=== PATIENT | male | born 1940 | race Caucasian/White ===

== ENCOUNTER 2018-10-06 18:32 | Inpatient (IN) | payer OTHER ==
[~2018-10-06] VITALS: Ht 185.4 cm; Wt 90.7 kg
[~2018-10-06 18:32] MED LIST: AMBIEN 10 MG TA10 MG PO; ATIVAN1 MG PO; CIPRO500 MG PO; CYMBALTA30 MG PO; ERYTHROMYCIN E3.5 G1 OPHTHALMIC; FIBERCON625 MG PO; FLOMAX0.4 MG PO; HYDROCHLOROTHIA25 M1 PO; IBUPROFEN 800800 M1 PO; LEVOTHROID75 MCG PO; LEVOTHYROXIN0.075 MG PO; LEVOTHYROXIN0.112 M1 PO; NEXIUM40 MG PO; ONDANSETRON HCL4 M2 PO; PERCOCET PO; PROTONIX40 M2 PO; RED YEAST RICE600 MG PO; TYLENOL325 MG PO
[2018-10-06 18:39] VITALS: BP 172/95
[2018-10-06] MEDS ORDERED: NORCO 5-325 TA1 EACH PO (18:42)
[2018-10-06 19:17] LABS: HEMOGLOBIN 15.3 gm/dL (14.0-18.0); MCH 29.5 pg (26.0-34.0); MCHC 33.4 g/dL (28.0-37.0); MCV 88.6 fL (80.0-100.0); MPV 9.7 fl. (7.2-11.1); NUCLEATED RBCS 0 /100WBC; PLATELET COUNT* 201 thou/uL (150-400); RBC 5.19 mil/uL (4.50-6.00); RDW-CV 13.9 % (10.5-14.5); WBC 10.5 thou/uL (4.0-11.0)
[2018-10-06 19:22] LABS: URINE BILIRUBIN NEGATIVE (Negative); URINE BLOOD 3+ (Negative); URINE CLARITY CLEAR; URINE COLOR YELLOW; URINE GLUCOSE-RANDOM NEGATIVE (Negative); URINE KETONES NEGATIVE (Negative); URINE LEUKOCYTES-REFLEX NEGATIVE (Negative); URINE NITRITE-REFLEX NEGATIVE (Negative); URINE PROTEIN 2+ (Negative); URINE SPECIFIC GRAVITY >= 1.030 (1.005-1.030); URINE UROBILINOGEN 0.2 E.U./dl (0.2-1.0)
[2018-10-06 19:23] LABS: ANION GAP 7 mmol/L (7-16); BUN 18 mg/dL (7-18); CHLORIDE 103 mmol/L (98-107); CO2 27 mmol/L (21-32); CREATININE 1.5 mg/dL (0.6-1.3); GLUCOSE 111 mg/dL (70-99); POTASSIUM 4.2 mmol/L (3.5-5.1); SODIUM 137 mmol/L (136-145)
[2018-10-06 19:30] LABS: ALKALINE PHOSPHATASE 112 U/L (46-116); LIPASE 63 U/L (73-393); SGOT 23 U/L (15-37); SGPT 33 U/L (30-65); TOTAL BILIRUBIN 0.3 mg/dL (<0.1-1.0); TOTAL PROTEIN 7.4 g/dL (6.4-8.2); TROPONIN-I LEVEL <0.06 ng/mL (<0.06)
[2018-10-06 19:30] LABS: BACTERIA-REFLEX None Seen /HPF (None Seen); CASTS None Seen /LPF (None Seen); MUCUS 0-3 Light strn/LPF (None Seen); SQUAMOUS 0-3 Few /LPF (0-3); URINE RBC 3-10 Few /HPF (0-2); URINE WBC-REFLEX None Seen /HPF (0-5)
[2018-10-06 19:31] LABS: CRYSTALS None Seen /LPF (None Seen)
[2018-10-06 19:49] LABS: ABSOLUTE LYMPHOCYTES 1.9 thou/uL (0.8-5.3); ABSOLUTE MONOCYTES 0.6 thou/uL (0.0-1.2); ATYPICAL LYMPHS 7 %; PLATELET ESTIMATE ADEQUATE
[2018-10-06 21:25] VITALS: BP 155/81
[2018-10-06 22:55] VITALS: BP 160/83
[2018-10-07 04:38] LABS: CALCIUM 8.4 mg/dL (8.5-10.1); CREATININE 1.6 mg/dL (0.6-1.3); PHOSPHORUS* 5.1 mg/dL (2.5-4.9); POTASSIUM 4.3 mmol/L (3.5-5.1)
[2018-10-07 08:28] VITALS: BP 128/59
[2018-10-07 14:26] VITALS: BP 128/59
[2018-10-07 14:35] VITALS: BP 128/59
[2018-10-07 14:59] VITALS: BP 124/66
--- NOTE | 2018-10-07 15:01 | EKG ---
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: : 1940 Requested By: Dianne Mccurdy Order Number: [id number] MD: Rubin Davis Measurements Intervals [place] Rate: 68 P: 77 IA: 180 QRS: 24 QRSD: 152 T: 73 QT: 422 QTc: 449 Interpretive Statements Sinus rhythm Right bundle branch block Baseline wander in lead(s) V1 Compared to ECG 01/25/2015 22:32:02 No significant changes Electronically Signed On 10-07-2018 15:01:36 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
[2018-10-07 20:30] VITALS: BP 144/62
[2018-10-08] VITALS: BP 135/61
[2018-10-08 04:00] VITALS: BP 137/54
[2018-10-08 08:31] VITALS: BP 141/58
[2018-10-08] MEDS ORDERED: FLOMAX0.4 MG PO (09:55)
[2018-10-08] MEDS ORDERED: VITAMIN B-12500 MCG PO (09:55)
[2018-10-08] MEDS ORDERED: UNICOMPLEX M TA1 TA1 PO (09:56)
[2018-10-08] MEDS ORDERED: FOLIC ACID1 MG PO (09:56)
[2018-10-08] MEDS ORDERED: CIPRO250 M1 PO (09:58)
[2018-10-08 10:34] LABS: ABSOLUTE LYMPHOCYTES 1.1 thou/uL (0.8-5.3); ABSOLUTE MONOCYTES 0.9 thou/uL (0.0-1.2); ABSOLUTE NEUTROPHILS 9.3 thou/uL (1.6-8.1); BASOPHILS 0.3 %; EOSINOPHILS 0.1 %; HEMATOCRIT 40.9 % (42.0-52.0); HEMOGLOBIN 13.4 gm/dL (14.0-18.0); LYMPHOCYTES 9.6 %; MCH 29.1 pg (26.0-34.0); MCHC 32.6 g/dL (28.0-37.0); MCV 89.1 fL (80.0-100.0); MONOCYTES 7.9 %; MPV 9.6 fl. (7.2-11.1); NUCLEATED RBCS 0 /100WBC; PLATELET COUNT* 183 thou/uL (150-400); POLYS 82.1 %; RBC 4.59 mil/uL (4.50-6.00); WBC 11.4 thou/uL (4.0-11.0)
[2018-10-08 10:47] VITALS: BP 141/58
[2018-10-08 10:47] LABS: CALCIUM 7.9 mg/dL (8.5-10.1); CREATININE 1.9 mg/dL (0.6-1.3); POTASSIUM 4.4 mmol/L (3.5-5.1)
[2018-10-08 10:57] VITALS: BP 141/58
[2018-10-08] MEDS ORDERED: LEVSIN0.125 MG PO (11:11)
[2018-10-08 11:39] VITALS: BP 141/58
--- NOTE | 2018-10-15 10:49 | OP ---
[address] [address] OPERATIVE REPORT Name: MAURYMYRIAM R Room: [address] IN M.R.#: [id number] Admission: 10/06/18 Attend Phys: Svetlana Chauhan MD Discharge: 10/08/18 Date of : 38 Report #: [id number] THIS REPORT FOR: //name// CC: [facility] Svetlana Tidwell DATE OF SERVICE: 10/07/2018 PREOPERATIVE DIAGNOSES: Obstructing left proximal ureteral calculus with continued pain. POSTOPERATIVE DIAGNOSES: Obstructing left proximal ureteral calculus with continued pain. PROCEDURE PERFORMED: Cystoscopy, right retrograde pyelogram, right ureteroscopy with laser fragmentation and basketing of stone and JJ stent placement. SURGEON: Nate Goddard MD COMPLICATIONS: None. DRAINS: Included a 6 x 26 cm stent in the right ureter. ANESTHESIA: General. BLOOD LOSS: None. SPECIMEN: Stone fragments to pathology. INDICATIONS: This is a 77-year-old male with prior history of passed stone, presented with severe right-sided flank pain, which continued since yesterday. He was given the options of management and elected to proceed with endoscopic stone management. He understood in advance the procedure, risks, potential complications and wished to proceed. He does also have two stones in the lower pole, which will need additional treatment. We discussed risk of bleeding, infection, scar tissue formation, inability to access the stone, injury to the urinary tract or adjacent structures and need for further procedures. DESCRIPTION OF PROCEDURE: Following informed consent, the patient was taken to the operating room and placed under general anesthesia. He was prepped and draped in sterile fashion in dorsal lithotomy position. Cystoscopy was carried out. The patient has normal anterior urethra, has evidence of prior TURP with moderate right-sided regrowth prostate. Bladder was inspected and was normal. The right ureteral orifice was cannulated. Retrograde pyelogram was performed, which revealed the stone still in the right proximal ureter [place] [address] OPERATIVE REPORT Name: MYRIAM MENDIOLA Room: [address]#: [id number] Admission: 10/06/18 Attend Phys: Svetlana Chauhan MD Discharge: 10/08/18 Date of : 38 Report #: [id number] of the proximal ureter. A sensor wire was advanced under fluoroscopic guidance into the renal collecting system. An 11 x 13-Lithuanian ureteral access sheath was placed up to about mid ureter. The flexible ureteroscope was inserted per this with the aid of a wire, was inserted up into the renal collecting system. The stone washed up into the mid pole ham. There, it was engaged in the basket, and the laser fiber was used to fragment into multiple pieces. Several of these were removed through the sheath and then the wire was then backloaded into the renal collecting system, and a 6 x 26 cm stent was placed with a coil in the renal pelvis and the coil in the bladder. Bladder was drained. The patient was given a Uro-Jet per urethra and B and O suppository, was not given Toradol as his creatinine was 1.6. The patient will need to have a stent in place for at least 10 days. We will do a KUB at that time and see if he can have either lithotripsy or repeat ureteroscopy before the stent is removed. <ELECTRONICALLY SIGNED> By: Nate Goddard MD 10/15/18 1049 1634 1715Wipravin Goddard MD /spike
[2018-10-15 16:10] LABS: STONE CA OXALATE MONOHYDRATE 95 % (()); STONE COLOR Brown (())
== END 2018-10-08 11:56 | disposition home or self-care (01) | DRG 660 ==
LOC: M.ERS 18:32 → M.TBA-ER 20:49 → M.ORTHSURG 20:49 → M.3W 21:38 → M.ORTHSURG 10-07 07:20
PROVIDERS: Physician Assistant; ADMIT Family Medicine
PROC: 0T768DZ Dilation of Right Ureter with Intraluminal Device, Via Natural or Artificial Opening Endoscopic (ICD-10-PCS; principal; 2018-10-07)
PROC: BT1D1ZZ Fluoroscopy of Right Kidney, Ureter and Bladder using Low Osmolar Contrast (ICD-10-PCS; principal; 2018-10-07)
PROC: 0TC68ZZ Extirpation of Matter from Right Ureter, Via Natural or Artificial Opening Endoscopic (ICD-10-PCS; principal; 2018-10-07)
DX: N20.2 Calculus of kidney with calculus of ureter (principal); E44.1 Mild protein-calorie malnutrition; N28.9 Disorder of kidney and ureter, unspecified; E53.8 Deficiency of other specified B group vitamins; I16.0 Hypertensive urgency; I12.9 Hypertensive chronic kidney disease with stage 1 through stage 4 chronic kidney disease, or unspecified chronic kidney disease; R31.29 Other microscopic hematuria; N40.0 Benign prostatic hyperplasia without lower urinary tract symptoms; N18.3 Chronic kidney disease, stage 3 (moderate); F41.9 Anxiety disorder, unspecified; E78.00 Pure hypercholesterolemia, unspecified; K21.9 Gastro-esophageal reflux disease without esophagitis; E03.9 Hypothyroidism, unspecified; Z90.49 Acquired absence of other specified parts of digestive tract; Z87.891 Personal history of nicotine dependence; Z79.01 Long term (current) use of anticoagulants; Z95.2 Presence of prosthetic heart valve; Z68.26 Body mass index [BMI] 26.0-26.9, adult; Z80.0 Family history of malignant neoplasm of digestive organs

== ENCOUNTER → 2019-12-09 | Outpatient (CLI) | payer OTHER ==
[~2019-12-09] MED LIST changes: +CIPRO250 M1 PO; +FOLIC ACID1 MG PO; +LEVSIN0.125 MG PO; +NORCO 5-325 TA1 EACH PO; +TRIAMCINOLONE A80 G2 TOP; +UNICOMPLEX M TA1 TA1 PO; +VITAMIN B-12500 MCG PO
[2019-12-09 12:24] LABS: ABSOLUTE EOSINOPHILS 0.2 thou/uL (0.0-0.7); ABSOLUTE LYMPHOCYTES 1.4 thou/uL (0.8-5.3); ABSOLUTE MONOCYTES 0.8 thou/uL (0.0-1.2); ABSOLUTE NEUTROPHILS 5.6 thou/uL (1.6-8.1); BASOPHILS 0.1 %; HEMATOCRIT 45.7 % (42.0-52.0); HEMOGLOBIN 15.5 gm/dL (14.0-18.0); LYMPHOCYTES 17.1 %; MCH 28.7 pg (26.0-34.0); MCHC 33.8 g/dL (28.0-37.0); MCV 84.9 fL (80.0-100.0); MONOCYTES 9.7 %; MPV 9.2 fl. (7.2-11.1); NUCLEATED RBCS 0 /100WBC; PLATELET COUNT* 233 thou/uL (150-400); POLYS 70.1 %; RBC 5.39 mil/uL (4.50-6.00); WBC 7.9 thou/uL (4.0-11.0)
[2019-12-09 13:06] LABS: ALBUMIN 3.1 g/dL (3.4-5.0); ALKALINE PHOSPHATASE 137 U/L (46-116); ANION GAP 8 mmol/L (7-16); BUN 24 mg/dL (7-18); CALCIUM 9.1 mg/dL (8.5-10.1); CHLORIDE 107 mmol/L (98-107); CO2 25 mmol/L (21-32); CREATININE 1.3 mg/dL (0.6-1.3); GLUCOSE 93 mg/dL (70-99); POTASSIUM 4.2 mmol/L (3.5-5.1); SERUM ASSESSMENT Clear; SGOT 22 U/L (15-37); SGPT 28 U/L (30-65); SODIUM 140 mmol/L (136-145); TOTAL BILIRUBIN 0.3 mg/dL (<0.1-1.0); TOTAL PROTEIN 7.8 g/dL (6.4-8.2)
[2019-12-09 13:16] LABS: CHOLESTEROL 122 mg/dL (<200); HDL CHOLESTEROL 32 mg/dL (>40); LDL CHOLESTEROL 56 mg/dL (<100); TC:HDL 3.8 Ratio (Not establshd); TRIGLYCERIDE 170 mg/dL (<150); VLDL 34 mg/dL (<40)
== END ==
LOC: M.CT 12:00
PROVIDERS: Family Medicine
DX: N28.1 Cyst of kidney, acquired (principal); J98.11 Atelectasis; I25.10 Atherosclerotic heart disease of native coronary artery without angina pectoris; I48.0 Paroxysmal atrial fibrillation; R22.9 Localized swelling, mass and lump, unspecified; E03.9 Hypothyroidism, unspecified; E78.2 Mixed hyperlipidemia; D35.02 Benign neoplasm of left adrenal gland; D35.01 Benign neoplasm of right adrenal gland; Z98.890 Other specified postprocedural states; Z90.49 Acquired absence of other specified parts of digestive tract

== ENCOUNTER → 2019-12-14 | Outpatient (CLI) | payer OTHER | LOC: M.LAB 14:43 | DX: E03.9 Hypothyroidism, unspecified (principal) ==

== ENCOUNTER 2020-05-25 13:19 | Observation (INO) | payer OTHER ==
[~2020-05-25] VITALS: Ht 182.9 cm; Wt 86.2 kg
[~2020-05-25 13:19] MED LIST changes: -LEVOTHYROXIN0.112 M1 PO; +NORCO 5-325 TA1 EAC2 PO; -NORCO 5-325 TA1 EACH PO; +SYNTHROID112 MC1 PO
[2020-05-25 13:29] VITALS: BP 146/101
[2020-05-25] MEDS ORDERED: LIPITOR10 MG PO (13:34)
[2020-05-25 14:08] LABS: ABSOLUTE BASOPHILS 0.1 thou/uL (0.0-0.2); ABSOLUTE EOSINOPHILS 0.2 thou/uL (0.0-0.7); ABSOLUTE LYMPHOCYTES 1.4 thou/uL (0.8-5.3); ABSOLUTE MONOCYTES 0.7 thou/uL (0.0-1.2); ABSOLUTE NEUTROPHILS 5.4 thou/uL (1.6-8.1); BASOPHILS 1.2 %; EOSINOPHILS 2.2 %; HEMATOCRIT 43.9 % (42.0-52.0); HEMOGLOBIN 14.8 gm/dL (14.0-18.0); LYMPHOCYTES 18.3 %; MCH 29.3 pg (26.0-34.0); MCHC 33.7 g/dL (28.0-37.0); MONOCYTES 8.8 %; MPV 9.1 fl. (7.2-11.1); NUCLEATED RBCS 0 /100WBC; PLATELET COUNT* 178 thou/uL (150-400); POLYS 69.5 %; RBC 5.04 mil/uL (4.50-6.00); RDW-CV 14.8 % (10.5-14.5); WBC 7.7 thou/uL (4.0-11.0)
[2020-05-25 14:17] LABS: CALCIUM 8.1 mg/dL (8.5-10.1); CREATININE 1.3 mg/dL (0.6-1.3)
[2020-05-25 14:18] LABS: APTT 26.3 Seconds (25.0-31.3); PROTIME 10.3 Seconds (9.20-11.50)
[2020-05-25 14:32] LABS: ALBUMIN 2.9 g/dL (3.4-5.0); CK-MB MASS 1.1 ng/mL (<0.5-3.6); TOTAL BILIRUBIN 0.3 mg/dL (<0.1-1.0); TOTAL PROTEIN 6.8 g/dL (6.4-8.2)
[2020-05-25 15:51] LABS: URINE BILIRUBIN NEGATIVE (Negative); URINE BLOOD NEGATIVE (Negative); URINE CLARITY CLEAR; URINE COLOR YELLOW; URINE GLUCOSE-RANDOM NEGATIVE (Negative); URINE KETONES NEGATIVE (Negative); URINE LEUKOCYTES-REFLEX NEGATIVE (Negative); URINE NITRITE-REFLEX NEGATIVE (Negative); URINE PROTEIN 1+ (Negative); URINE SPECIFIC GRAVITY >= 1.030 (1.005-1.030); URINE UROBILINOGEN 0.2 E.U./dl (0.2-1.0)
[2020-05-25 17:32] VITALS: BP 158/73
[2020-05-25 20:00] VITALS: BP 144/75
[2020-05-26] VITALS (7 sets, daily range): BP systolic 145–175; BP diastolic 68–92
[2020-05-26 02:06] LABS: GLYCOHEMOGLOBIN (HGB A1C) 5.9 % (4.8-5.6)
[2020-05-26 04:04] LABS: ABSOLUTE BASOPHILS 0.1 thou/uL (0.0-0.2); ABSOLUTE EOSINOPHILS 0.2 thou/uL (0.0-0.7); ABSOLUTE LYMPHOCYTES 1.5 thou/uL (0.8-5.3); ABSOLUTE MONOCYTES 0.7 thou/uL (0.0-1.2); ABSOLUTE NEUTROPHILS 4.7 thou/uL (1.6-8.1); BASOPHILS 1.2 %; EOSINOPHILS 3.3 %; HEMATOCRIT 41.3 % (42.0-52.0); HEMOGLOBIN 13.9 gm/dL (14.0-18.0); LYMPHOCYTES 20.3 %; MCH 29.4 pg (26.0-34.0); MCHC 33.7 g/dL (28.0-37.0); MCV 87.3 fL (80.0-100.0); MONOCYTES 9.1 %; MPV 9.4 fl. (7.2-11.1); NUCLEATED RBCS 0 /100WBC; PLATELET COUNT* 166 thou/uL (150-400); POLYS 66.1 %; RBC 4.73 mil/uL (4.50-6.00); RDW-CV 14.7 % (10.5-14.5); WBC 7.2 thou/uL (4.0-11.0)
[2020-05-26 04:11] LABS: CREATININE 1.1 mg/dL (0.6-1.3); POTASSIUM 3.9 mmol/L (3.5-5.1)
[2020-05-26 06:20] LABS: CHOLESTEROL 133 mg/dL (<200); HDL CHOLESTEROL 38 mg/dL (>40); LDL CHOLESTEROL 67 mg/dL (<100); TC:HDL 3.5 Ratio (Not establshd); TRIGLYCERIDE 141 mg/dL (<150); VLDL 28 mg/dL (<40)
[2020-05-26 06:23] LABS: SERUM ASSESSMENT Clear
--- NOTE | 2020-05-26 09:00 | EKG ---
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
--- NOTE | 2020-05-26 11:07 | 2DMMODE ---
[place] [address] 2 D/M-MODE ECHOCARDIOGRAM Name: MYRIAM MENDIOLA Room: [address] Enrique#: [id number] Admission: 05/25/20 Attend Phys: Gabriel Hassan, Discharge: Date of : 38 Date of Service: 05/26/20 1107 Report #: [id number] THIS REPORT FOR: cc: Teja Tidwell,Teja Kenyon,Dinesh Crenshaw MD [facility] ~ APPROVED REPORT Study performed: 05/26/2020 10:13:12 EXAM: Comprehensive 2D, Doppler, and color-flow Echocardiogram Patient Location: In-Patient BSA: 2.08 HR: 65 bpm BP: 152/79 mmHg Other Information Study Quality: Good Indications Prosthetic Valve CVA/TIA Echo Enhancing Agent Indication: Rule out Shunt Agent(s) / Amount(s) Used: Agitated Saline cc 2D Dimensions IVSd: 11.47 (7-11mm) LVOT Diam: 20.41 (18-24mm) LVDd: 51.29 mm PWd: 10.63 (7-11mm) Ascending Ao: 24.17 (22-36mm) LVDs: 37.66 (25-40mm) Aortic Root: 22.35 mm Volumes Left Atrial Volume (Systole) LA ESV Index: 25.20 mL/m2 Aortic Valve AoV Peak Syd.: 1.99 m/s AO Peak Gr.: 15.78 mmHg LVOT Max P.18 mmHg AO Mean Gr.: 8.58 mmHg LVOT Mean P.16 mmHg LVOT Max V: 0.74 m/[place] [address] 2 D/M-MODE ECHOCARDIOGRAM Name: MYRIAM MENDIOLA Room: [address] MGiovannaRGiovanna#: [id number] Admission: 05/25/20 Attend Phys: Gabriel Hassan, Discharge: Date of : 38 Date of Service: 05/26/20 1107 Report #: [id number] AO V2 VTI: 42.49 cm LVOT Mean V: 0.50 m/s MILDRED (VTI): 1.36 cm2 LVOT V1 VTI: 17.71 cm Mitral Valve E/A Ratio: 0.96 MV Decel. Time: 263.14 ms MV E Max Syd.: 0.90 m/s MV PHT: 76.31 ms MVA (PHT): 2.88 cm2 TDI E/Lateral E': 10.00 E/Medial E': 11.25 Medial E' Syd.: 0.08 m/s Lateral E' Syd.: 0.09 m/s Pulmonary Valve PV Peak Syd.: 0.88 m/s PV Peak Gr.: 3.12 mmHg Tricuspid Valve RAP Estimate: 5.00 mmHg TR Peak Gr.: 41.65 mmHg RVSP: 46.65 mmHg PA Pressure: 46.65 mmHg Left Ventricle The left ventricle is normal size. There is normal LV segmental wall motion. Mild concentric left ventricular hypertrophy. Left ventricular systolic function is normal. Transmitral Doppler flow pattern suggests impaired LV relaxation. Right Ventricle The right ventricle is normal size. The right ventricular systolic function is normal. Atria Left atrium is mildly dilated. Interatrial septum not well visualized. Injection of bubbles documented an interatrial shunt. Right atrium is borderline dilated. Aortic Valve Bioprosthetic aortic valve is present. No aortic regurgitation is present. There is no aortic valvular stenosis. Mitral Valve The mitral valve is normal in structure. Trace mitral regurgitation. No evidence of mitral [place] [address] 2 D/M-MODE ECHOCARDIOGRAM Name: MYRIAM MENDIOLA Room: [address]#: [id number] Admission: 05/25/20 Attend Phys: Gabriel Hassan, Discharge: Date of : 38 Date of Service: 05/26/20 1107 Report #: [id number] Tricuspid Valve The tricuspid valve is normal in structure. Mild to moderate tricuspid regurgitation. The RVSP is 45-50 mmHg. Pulmonic Valve The pulmonary valve is normal in structure. There is no pulmonic valvular regurgitation. Great Vessels The aortic root is normal in size. IVC is not well visualized. Pericardium There is no pericardial effusion. <Conclusion> The left ventricle is normal size. Mild concentric left ventricular hypertrophy. Left ventricular systolic function is normal. Transmitral Doppler flow pattern suggests impaired LV relaxation. Left atrium is mildly dilated. Interatrial septum not well visualized. Injection of bubbles documented an interatrial shunt. Bioprosthetic aortic valve is present. No aortic regurgitation is present. There is no aortic valvular stenosis. Trace mitral regurgitation. Mild to moderate tricuspid regurgitation. The RVSP is 45-50 mmHg. <ELECTRONICALLY SIGNED> By: Dinesh Griffin MD, FACC 05/26/20 1107 06 06 Dinesh Griffin MD, FACC /INF
[2020-05-26] MEDS ORDERED: PLAVIX 75 MG TA75 M1 PO (11:11)
[2020-05-26] MEDS ORDERED: NAMENDA 5 MG TAB5 M1 PO (11:11)
[2020-05-27] VITALS: BP 155/79
[2020-05-27 04:00] VITALS: BP 162/80
[2020-05-27 08:00] VITALS: BP 158/82
[2020-05-27 13:49] VITALS: BP 168/71
[2020-05-27] MEDS ORDERED: B-12 DOTS500 MCG PO (14:04)
[2020-05-27] MEDS ORDERED: ASPIR 8181 M1 PO (14:06)
[2020-05-27 17:19] VITALS: BP 168/71
== END 2020-05-27 18:15 | disposition home or self-care (01) ==
LOC: M.ERS 13:19 → M.2W 15:14 → M.TBA-ER 15:14 → M.2W 17:45
PROVIDERS: Family Medicine; ADMIT Internal Medicine; ATTEND Internal Medicine
DX: Z03.818 Encounter for observation for suspected exposure to other biological agents ruled out (principal); R42 Dizziness and giddiness; F41.9 Anxiety disorder, unspecified; I16.0 Hypertensive urgency; F03.90 Unspecified dementia, unspecified severity, without behavioral disturbance, psychotic disturbance, mood disturbance, and anxiety